=== PATIENT | male | born 1990 | race Asian ===

== ENCOUNTER 2019-05-07 17:08 | Emergency (ER) | payer OTHER ==
[~2019-05-07] VITALS: Ht 170.2 cm; Wt 76.6 kg
--- NOTE | 2019-05-07 17:53 | NUR ---
pt to ed from for high bgl. 380 here. piv est, labs drawn, fluids infusing. sts felt like he was going to pass out today. +polyuria, polydipsia, polyphagia x1 year approx. did not go to [facility] health insurance reasons. bgl 444 at . vss. call [facility] in reach. aware of need for ua. ctm. as
[2019-05-07 18:00] LABS: BASOPHILS # (AUTO) 0.04 x10^3/uL (0-0.1); BASOPHILS % (AUTO) 1 % (0-1); EOSINOPHILS # (AUTO) 0.29 x10^3/uL (0-0.4); EOSINOPHILS % (AUTO) 4 % (1-7); LYMPHOCYTES # (AUTO) 2.89 x10^3/uL (1-3.4); LYMPHOCYTES % (AUTO) 35 % (22-44); MD NO; MEAN CORPUSCULAR HEMOGLOBIN 27.6 pg (27.5-34.5); MEAN CORPUSCULAR HGB CONC 33.3 g/dL (33.2-36.2); MEAN CORPUSCULAR VOLUME 82.9 fL (81-97); MEAN PLATELET VOLUME 10.2 fL (7.4-10.4); MONOCYTES % (AUTO) 4 % (2-9); NEUTROPHILS # (AUTO) 4.75 x10^3/uL (1.8-6.8); NEUTROPHILS % (AUTO) 58 % (42-75); PLATELET COUNT 281 x10^3/uL (130-400); RED BLOOD COUNT 6.05 x10^6/uL (4.38-5.82); RED CELL DISTRIBUTION WIDTH 13.2 % (9.4-14.8)
[2019-05-07 18:08] LABS: ALBUMIN 4.3 g/dL (3.4-5.0); ANION GAP 6 mmol/L (5-15); CALCIUM 9.2 mg/dL (8.5-10.1); CHLORIDE 97 mmol/L (98-107); CREATININE 1.15 mg/dL (0.7-1.3)
--- NOTE | 2019-05-07 18:35 | NUR ---
ua sent. vss. NAD. as
[2019-05-07 18:39] LABS: MICROSCOPIC NOT IND
--- NOTE | 2019-05-07 18:43 | NUR ---
bgl 352 from 380 after 1 L ns infused. pt verbalizes feeling better. call [facility] in reach vss. as
[2019-05-07 18:44] LABS: CULTURE INDICATED? NO
[2019-05-07] MEDS ORDERED: metFORMIN 500 MG TABLET PO STA (18:44)
[2019-05-07] MEDS ORDERED: metFORMIN 500 MG TABLET ONE (18:49)
[2019-05-07 19:50] VITALS: BP 127/91
== END 2019-05-07 19:53 | disposition home or self-care (01) ==
LOC: ED 17:37
DX: E11.65 Type 2 diabetes mellitus with hyperglycemia (principal); R35.0 Frequency of micturition; R42 Dizziness and giddiness; R53.83 Other fatigue
CPT/HCPCS: 80048; 81003; 82040; 82962; 85025; 99283